=== PATIENT | female | born 1955 | race Caucasian/White ===

== ENCOUNTER 2020-08-02 11:29 | Outpatient (REF) | payer OTHER, SELFPAY ==
--- NOTE | 2020-08-02 11:35 | MM_ITS ---
EXAMINATION: MM SCREENING DIGITAL BREAST TOMOSYNTHESIS, BILATERAL CLINICAL INFORMATION: Screening. Asymptomatic. The lifetime risk of breast cancer based on the Tyrer-Cuzick Model is 6.7%. COMPARISON: Mammography: May 08, 2019 and studies dating back to April 16, 2009 TECHNIQUE: Digital breast tomosynthesis is performed in both the craniocaudal and mediolateral oblique views along with computer-aided detection (CAD). Synthesized 2D images are generated from the tomosynthesis. FINDINGS: The breasts are almost entirely fatty (ACR BI-RADS breast composition Category a). There are no significant masses, abnormal calcifications, or other abnormalities. MM/MM tomosynthesis screening BI IMPRESSION: There are no significant changes from prior study. ASSESSMENT: BI-RADS 1: Negative RECOMMENDATION: Routine annual mammography screening. This patient's information was entered into a reminder system with a target due date for their next mammogram.
== END 2020-08-02 11:30 | disposition home or self-care (01) ==
LOC: HO.MAMMO 11:29
PROVIDERS: Visit Provider Family Medicine
DX: Z12.31 Encounter for screening mammogram for malignant neoplasm of breast (principal)
CPT/HCPCS: 77063; 77067

== ENCOUNTER 2021-04-01 12:47 | Outpatient (REF) | payer OTHER, SELFPAY ==
--- NOTE | ~2021-04-01 | US_ITS ---
EXAMINATION: US VENOUS WITH DOPPLER UPPER EXTREMITY, LEFT CLINICAL INFORMATION: Left arm pain and swelling COMPARISON: None TECHNIQUE: Ultrasound of the upper extremity is performed using compression sonography and color and pulse Doppler flow with assessment of augmentation of flow. There is also imaging and Doppler assessment of the jugular and subclavian veins. Spectral analysis with color-flow imaging is performed. FINDINGS: Respiratory variation, normal compression, and augmented flow are noted throughout the upper extremity including the axillary, brachial, cubital, and radial and ulnar veins. There is normal flow in the internal jugular and subclavian veins. There is no visible deep or superficial thrombophlebitis. If the patient's symptoms progress, a followup ultrasound in 5 -7 days might be of value to exclude proximal propagation from a nonvisualized distal arm vein. US/US venous duplex UE LT IMPRESSION: No DVT demonstrated in the left upper extremity
--- NOTE | ~2021-04-01 | XR_ITS ---
EXAMINATION: XR SHOULDER, LEFT CLINICAL INFORMATION: Pain. COMPARISON: None TECHNIQUE: AP external rotation, Grashey, scapular Y, and axillary views of the left shoulder. FINDINGS: There is mild reduction in the left AC joint space. The left lateral joint space is maintained normal. There is a small calcification lateral to the greater tuberosity suggestive of calcific tendinitis. No acute fracture or dislocation seen. The soft tissues are normal. XR/XR shoulder LT min 2V IMPRESSION: Likely calcific tendinitis. Mild DJD AC joint.
== END 2021-04-01 12:48 | disposition home or self-care (01) ==
LOC: HO.US 12:47
PROVIDERS: Visit Provider Family Medicine
DX: R60.0 Localized edema (principal); M79.89 Other specified soft tissue disorders; M79.602 Pain in left arm
CPT/HCPCS: 73030; 93971

== ENCOUNTER 2021-08-12 10:34 | Outpatient (REF) | payer OTHER, SELFPAY ==
--- NOTE | ~2021-08-12 | MM_ITS ---
EXAMINATION: MM SCREENING DIGITAL BREAST TOMOSYNTHESIS, BILATERAL CLINICAL INFORMATION: Screening. Asymptomatic. The lifetime risk of breast cancer based on the Tyrer-Cuzick Model is 6%. COMPARISON: Mammography: 08/02/2020, 05/08/2019, 05/03/2018 TECHNIQUE: Digital breast tomosynthesis is performed in both the craniocaudal and mediolateral oblique views along with computer-aided detection (CAD). Synthesized 2D images are generated from the tomosynthesis. Additional views are obtained: Bilateral CC, bilateral MLO. FINDINGS: The breasts are almost entirely fatty (ACR BI-RADS breast composition Category a). Background stromal and fibroglandular markings are similar to prior studies. There is no interval mass or architectural abnormality or abnormal calcifications. No developing density. The axilla and skin contours are unremarkable. No significant changes. MM/MM tomosynthesis screening BI IMPRESSION: No mammographic evidence of malignancy. ASSESSMENT: BI-RADS 1: Negative RECOMMENDATION: Routine annual mammography screening. This patient's information was entered into a reminder system with a target due date for their next mammogram.
== END 2021-08-12 10:35 | disposition home or self-care (01) ==
LOC: HO.MAMMO 10:34
PROVIDERS: PCP Family Medicine; Visit Provider Family Medicine
DX: Z12.31 Encounter for screening mammogram for malignant neoplasm of breast (principal)
CPT/HCPCS: 77063; 77067

== ENCOUNTER 2022-05-26 09:46 | Outpatient (REF) | payer OTHER, SELFPAY ==
--- NOTE | ~2022-05-26 | XR_ITS ---
EXAMINATION: XR KNEE, LEFT CLINICAL INFORMATION: Pain COMPARISON: None TECHNIQUE: Four views of the left knee. FINDINGS: Bone alignment is normal. No fracture or dislocation. Normal-appearing joint spaces. No joint effusion. Small osteophyte at the quadriceps tendon insertion to the patella. XR/XR knee LT 4V IMPRESSION: Small osteophyte at the quadriceps tendon insertion to the patella otherwise unremarkable exam.
--- NOTE | ~2022-05-26 | US_ITS ---
EXAMINATION: US ABDOMEN LIMITED CLINICAL INFORMATION: Recurrent umbilical discharge. COMPARISON: None TECHNIQUE: Real-time imaging of the abdominal wall in the periumbilical region with and without Valsalva maneuver FINDINGS: There is a heterogeneous predominately hypoechoic area slightly to the right of midline just deep to the umbilicus. This has an echogenic nonshadowing center. This measures approximately 1 x 1 x 2 cm and is of uncertain etiology. No hernia is appreciated. US/US abdomen limited IMPRESSION: 1 x 1 x 2 cm heterogeneous area deep to the umbilicus and to the right of midline of uncertain etiology. Follow-up CT scanning recommended. No hernia.
== END 2022-05-26 09:47 | disposition home or self-care (01) ==
LOC: HO.HMGCX 09:46
PROVIDERS: PCP Family Medicine; Visit Provider Internal Medicine
DX: M25.562 Pain in left knee (principal); R19.8 Other specified symptoms and signs involving the digestive system and abdomen
CPT/HCPCS: 73564; 76705

== ENCOUNTER 2022-06-02 10:14 | Outpatient (REF) | payer OTHER, SELFPAY ==
[2022-06-02 10:48] LABS: MANUAL DIFF FLAG NO
[2022-06-02 11:30] LABS: Basophils Percent Auto 0.4 % (0-2); Eosinophils Absolute Auto 0.2 X10*3/uL (0.0-0.4); Eosinophils Percent Auto 1.6 % (0-4); Hematocrit 40.2 % (37.0-47.0); Hemoglobin 12.9 g/dl (12.0-16.0); Imm Gran Abs Auto 0.05 X10*3/uL (0.00-0.03); Imm Gran Pct Auto 0.5 % (0.0-0.4); Lymphocytes Absolute Auto 3.4 X10*3/uL (1.2-4.9); Mean Corpuscular HGB Conc 32.1 g/dl (31.0-35.0); Mean Corpuscular Hemoglobin 29.7 pg (27.0-33.0); Mean Corpuscular Volume 92.4 fL (80.0-98.0); Mean Platelet Volume 9.8 fL (9.4-12.3); Monocytes Absolute Auto 0.6 X10*3/uL (0.1-1.2); Monocytes Percent Auto 5.2 % (2-11); Neutrophils Absolute Auto 6.8 x10*3/uL (2.0-8.3); Neutrophils Percent Auto 61.3 % (45-73); Platelet Count 388 X10*3/uL (160-400); Red Blood Count 4.35 X10*6/uL (4.20-5.50); Red Cell Distribution Width 14.3 % (11.0-16.0)
[2022-06-02 11:55] LABS: Alanine Aminotransferase 8 U/L (0-31); Alkaline Phosphatase 114 U/L (39-117); Anion Gap 18 (12-20); Aspartate Amino Transferase 25 U/L (5-31); Bilirubin Total 0.3 mg/dL (0.0-1.0); Blood Urea Nitrogen 14 mg/dL (9-16); Calcium 9.6 mg/dL (8.4-10.2); Carbon Dioxide 24 mmol/L (22-29); Chloride 102 mmol/L (96-108); Estimated Glomerular Filt Rate > 60; Glucose Random 283 mg/dL (60-115); Potassium 4.5 mmol/L (3.3-5.1); Sodium 139 mmol/L (135-145); Total Protein 7.5 g/dL (6.5-8.0)
[2022-06-02 13:12] LABS: Estimated Average Glucose 169 mg/dL; Hemoglobin A1c % 7.5 %
== END 2022-06-02 10:15 | disposition home or self-care (01) ==
LOC: HO.LAB 10:14
PROVIDERS: PCP Family Medicine; Visit Provider Surgery
DX: E11.9 Type 2 diabetes mellitus without complications (principal); E66.01 Morbid (severe) obesity due to excess calories; J44.9 Chronic obstructive pulmonary disease, unspecified; B99.9 Unspecified infectious disease
CPT/HCPCS: 36415; 80053; 83036; 85025; 99202

== ENCOUNTER 2022-06-11 09:45 | Outpatient (REF) | payer OTHER, SELFPAY ==
--- NOTE | ~2022-06-11 | CT_ITS ---
EXAMINATION: CT ABDOMEN AND PELVIS WITHOUT CONTRAST CLINICAL INFORMATION: Umbilical granuloma. COMPARISON: None TECHNIQUE: Multidetector volumetric imaging was performed from the superior aspect of the liver through the pubic symphysis. Sagittal and coronal reformatted images were obtained on the technologist's workstation. This CT examination was performed using dose optimization techniques as appropriate, variously including the following: *Automated exposure control *Adjustment of mA and/or kV according to patient size (this includes techniques or standardized protocols for targeted exams where dose is matched to indication/reason for exam; i.e. extremities or head) *Use of iterative reconstruction technique DLP: 956 mGy-cm FINDINGS: LUNG BASES: The lung bases are well-expanded and clear. The heart size is normal. LIVER, GALLBLADDER, AND BILIARY TREE: The liver is normal in size, shape, and attenuation. No focal hepatic lesion or biliary ductal dilatation is present. The gallbladder is unremarkable with no evidence of radiopaque gallstones, gallbladder wall thickening, or obvious pericholecystic inflammatory changes. PANCREAS: Unremarkable. SPLEEN: Unremarkable. ADRENAL GLANDS: Unremarkable. KIDNEYS AND URETERS: The kidneys are normal in size, shape, and attenuation. No hydronephrosis, hydroureter, or calculi seen. No perinephric stranding. BLADDER: Unremarkable. GASTROINTESTINAL TRACT: There is scattered stool, diverticuli and gas seen throughout the colon without significant distention or diverticulitis. The small bowel loops are normal caliber. The appendix is not visualized. There is no inflammatory process in the abdomen. ABDOMINAL WALL: A tiny umbilical hernia containing fat is noted. No abnormal mass or calcification seen. LYMPH NODES: Small shotty bilateral inguinal lymph nodes seen. No abnormal retroperitoneal or mesenteric lymph nodes seen. VASCULAR: The abdominal is normal caliber. PELVIC VISCERA: Unremarkable. OSSEOUS STRUCTURES: There are degenerative disc changes with vacuum disc phenomenon, spondylosis/bulge complex L5/S1 disc level. CT/CT abdomen pelvis wo IV con IMPRESSION: 1. No acute intra-abdominal process seen. 2. Scattered colonic diverticulosis without diverticulitis. Mild constipation. Tiny umbilical hernia containing fat. Fleischner guidelines were followed.
== END 2022-06-11 09:46 | disposition home or self-care (01) ==
LOC: HO.CT 09:45
PROVIDERS: PCP Family Medicine; Visit Provider Surgery
DX: B99.9 Unspecified infectious disease (principal); P83.81 Umbilical granuloma; E11.9 Type 2 diabetes mellitus without complications; E66.01 Morbid (severe) obesity due to excess calories; J44.9 Chronic obstructive pulmonary disease, unspecified
CPT/HCPCS: 74176

== ENCOUNTER → 2022-06-23 09:12 | Outpatient (BNVA) | payer OTHER, SELFPAY | PROVIDERS: PCP Family Medicine; Visit Provider Surgery | DX: P83.81 Umbilical granuloma (principal); B99.9 Unspecified infectious disease; E66.01 Morbid (severe) obesity due to excess calories; K59.00 Constipation, unspecified; E11.9 Type 2 diabetes mellitus without complications; J44.9 Chronic obstructive pulmonary disease, unspecified; Z68.42 Body mass index [BMI] 45.0-49.9, adult | CPT/HCPCS: 99212 ==

== ENCOUNTER 2022-08-24 10:37 | Outpatient (REF) | payer MEDICARE, SELFPAY ==
--- NOTE | ~2022-08-24 | MM_ITS ---
EXAMINATION: MM SCREENING DIGITAL BREAST TOMOSYNTHESIS, BILATERAL CLINICAL INFORMATION: Screening. Asymptomatic. The lifetime risk of breast cancer based on the Tyrer-Cuzick Model is 6%. COMPARISON: Mammography: 08/12/2021, 08/02/2020, 05/08/2019 TECHNIQUE: Digital breast tomosynthesis is performed in both the craniocaudal and mediolateral oblique views along with computer-aided detection (CAD). Synthesized 2D images are generated from the tomosynthesis. Additional bilateral CC and additional bilateral MLO views are provided. FINDINGS: There are scattered areas of fibroglandular density (ACR BI-RADS breast composition Category b). Breast tissue composition borders on predominantly fatty. Background stromal and fibroglandular densities are stable. No developing density or architectural abnormality or abnormal calcifications. No significant changes. MM/MM tomosynthesis screening BI IMPRESSION: No mammographic evidence of malignancy. ASSESSMENT: BI-RADS 1: Negative RECOMMENDATION: Routine annual mammography screening. This patient's information was entered into a reminder system with a target due date for their next mammogram.
== END 2022-08-24 10:38 | disposition home or self-care (01) ==
LOC: HO.MAMMO 10:37
PROVIDERS: PCP Family Medicine; Visit Provider Family Medicine
DX: Z12.31 Encounter for screening mammogram for malignant neoplasm of breast (principal)
CPT/HCPCS: 77063; 77067

== ENCOUNTER 2022-12-16 10:25 | Outpatient (REF) | payer MEDICARE, SELFPAY ==
--- NOTE | ~2022-12-16 | XR_ITS ---
EXAMINATION: XR SHOULDER, LEFT CLINICAL INFORMATION: Pain x3 days worse with range of motion COMPARISON: None available. TECHNIQUE: AP external rotation, Grashey, scapular Y, and axillary views of the left shoulder. FINDINGS: No fractures or dislocations. There is calcification in the supraspinatus tendon, slightly more than was seen on 04/01/2021. Again noted are mild degenerative changes at the left AC joint. XR/XR shoulder LT min 2V IMPRESSION: 1. Calcific tendinitis left shoulder. 2. Mild degenerative changes left AC joint.
== END 2022-12-16 10:26 | disposition home or self-care (01) ==
LOC: HO.HHCX 10:25
PROVIDERS: Visit Provider Emergency Medicine
DX: M25.512 Pain in left shoulder (principal)
CPT/HCPCS: 73030

== ENCOUNTER 2023-08-17 21:41 | Emergency (ER) | payer OTHER, SELFPAY ==
[2023-08-17 21:43] VITALS: BP 170/86; PULSE 87; RESP 18; TEMP 36.8; O2SAT 95; BMI 45.7
[2023-08-17 22:09] LABS: MANUAL DIFF FLAG NO
[2023-08-17 22:17] LABS: Basophils Absolute Auto 0.1 X10*3/uL (0.0-0.2); Basophils Percent Auto 0.4 % (0-2); Eosinophils Absolute Auto 0.1 X10*3/uL (0.0-0.4); Eosinophils Percent Auto 0.6 % (0-4); Hematocrit 39.1 % (37.0-47.0); Hemoglobin 13.1 g/dl (12.0-16.0); Imm Gran Abs Auto 0.08 X10*3/uL (0.00-0.03); Imm Gran Pct Auto 0.5 % (0.0-0.4); Lymphocytes Absolute Auto 2.7 X10*3/uL (1.2-4.9); Mean Corpuscular HGB Conc 33.5 g/dl (31.0-35.0); Mean Corpuscular Hemoglobin 30.4 pg (27.0-33.0); Mean Corpuscular Volume 90.7 fL (80.0-98.0); Mean Platelet Volume 9.7 fL (9.4-12.3); Monocytes Absolute Auto 0.5 X10*3/uL (0.1-1.2); Monocytes Percent Auto 3.4 % (2-11); Neutrophils Absolute Auto 12.2 x10*3/uL (2.0-8.3); Neutrophils Percent Auto 78.1 % (45-73); Platelet Count 337 X10*3/uL (160-400); Red Blood Count 4.31 X10*6/uL (4.20-5.50); Red Cell Distribution Width 13.6 % (11.0-16.0); White Blood Count 15.6 X10*3/uL (4.8-10.8)
[2023-08-17 22:18] LABS: Appearance Urine Clear; Color Urine Yellow; Glucose Urine UA Negative (Negative); Leukocyte Esterase Urine Small (1+) (Negative); Nitrite Urine Negative (Negative); UMIC TRIGGER UACC YES; Urine Blood Moderate (2+) (Negative); Urine Ketones Negative (Negative); Urine Protein Negative (Neg-Trace)
[2023-08-17 22:23] LABS: Bacteria Urine 1+ (None Seen); Hyaline Casts Urine 0-2 /LPF (0-2); UACC Culture Trigger YES
[2023-08-17 22:25] LABS: Alanine Aminotransferase < 5 U/L (0-31); Albumin Level 3.9 g/dL (3.5-5.0); Alkaline Phosphatase 120 U/L (39-117); Anion Gap 16 (12-20); Aspartate Amino Transferase 14 U/L (5-31); Bilirubin Total 0.3 mg/dL (0.0-1.0); Blood Urea Nitrogen 19 mg/dL (9-16); Calcium 9.3 mg/dL (8.4-10.2); Carbon Dioxide 26 mmol/L (22-29); Chloride 103 mmol/L (96-108); Creatinine Clr Calc Pharmacy 60.7; Estimated Glomerular Filt Rate 50; Glucose Random 204 mg/dL (60-115); Potassium 4.3 mmol/L (3.3-5.1); Sodium 141 mmol/L (135-145); Total Protein 7.9 g/dL (6.5-8.0)
== END 2023-08-18 00:30 | disposition left against medical advice (07) ==
LOC: HO.ED 08-18 00:28
PROVIDERS: Emergency Provider Emergency Medicine; PCP Family Medicine
DX: R10.9 Unspecified abdominal pain (principal); R11.2 Nausea with vomiting, unspecified; Z79.899 Other long term (current) drug therapy
CPT/HCPCS: 36415; 80053; 81001; 85025; 87086; 87088; 87186; 99282; 99283

== ENCOUNTER 2023-08-18 | Outpatient (REF) | payer OTHER, SELFPAY | END 2023-08-18 00:01 | disposition home or self-care (01) | LOC: HO.HHCLNP | PROVIDERS: Visit Provider Internal Medicine | DX: N30.00 Acute cystitis without hematuria (principal) | CPT/HCPCS: 87086 ==

== ENCOUNTER 2023-08-27 16:07 | Outpatient (REF) | payer OTHER, SELFPAY | END 2023-08-27 16:08 | disposition home or self-care (01) | LOC: HO.MAMMO 16:07 | PROVIDERS: PCP Family Medicine; Visit Provider Family Medicine | DX: Z12.31 Encounter for screening mammogram for malignant neoplasm of breast (principal) | CPT/HCPCS: 77063; 77067 ==

== ENCOUNTER → 2023-08-27 16:15 | Outpatient (BNV) | payer OTHER, SELFPAY | PROVIDERS: PCP Family Medicine; Visit Provider Radiology Diagnostic Radiology | DX: Z12.31 Encounter for screening mammogram for malignant neoplasm of breast (principal) | CPT/HCPCS: 77063; 77067 ==

== ENCOUNTER 2023-11-04 09:10 | Outpatient (REF) | payer OTHER, SELFPAY ==
[2023-11-04 11:38] LABS: Hematocrit 40.4 % (37.0-47.0); Hemoglobin 13.1 g/dl (12.0-16.0); Mean Corpuscular HGB Conc 32.4 g/dl (31.0-35.0); Mean Corpuscular Hemoglobin 30.8 pg (27.0-33.0); Mean Corpuscular Volume 94.8 fL (80.0-98.0); Mean Platelet Volume 10.2 fL (9.4-12.3); Platelet Count 350 X10*3/uL (160-400); Red Blood Count 4.26 X10*6/uL (4.20-5.50); White Blood Count 9.3 X10*3/uL (4.8-10.8)
[2023-11-04 11:43] LABS: Estimated Average Glucose 171 mg/dL; Hemoglobin A1c % 7.6 % (<6.0)
[2023-11-04 12:10] LABS: Creatinine Urine 115.44 mg/dL; Microalbum/Creatinine Ratio Ur 9.5 ug/mg cr (<30)
[2023-11-04 12:27] LABS: Alanine Aminotransferase < 5 U/L (0-31); Albumin Level 3.8 g/dL (3.5-5.0); Alkaline Phosphatase 108 U/L (39-117); Anion Gap 13 (12-20); Aspartate Amino Transferase 16 U/L (5-31); Bilirubin Direct 0.2 mg/dL (0.0-0.5); Bilirubin Total 0.4 mg/dL (0.0-1.0); Blood Urea Nitrogen 15 mg/dL (9-16); Calcium 9.8 mg/dL (8.4-10.2); Carbon Dioxide 28 mmol/L (22-29); Chloride 104 mmol/L (96-108); Cholesterol 137 mg/dL (<200); Estimated Glomerular Filt Rate > 60; Glucose Random 113 mg/dL (60-115); HDL Cholesterol 45 mg/dL (>40); LDL Cholesterol Calculated 71 mg/dL (<100); Potassium 4.3 mmol/L (3.3-5.1); Sodium 141 mmol/L (135-145); Total Protein 7.8 g/dL (6.5-8.0); Triglycerides 106 mg/dL (<150)
[2023-11-04 12:43] LABS: Free T4 (Free Thyroxine) 0.99 ng/dL (0.71-1.85); Thyroid Stimulating Hormone 3.16 uIU/mL (0.32-4.0)
== END 2023-11-04 09:11 | disposition home or self-care (01) ==
LOC: HO.HHCL 09:10
PROVIDERS: Visit Provider Family Medicine
DX: Z00.00 Encounter for general adult medical examination without abnormal findings (principal); E11.9 Type 2 diabetes mellitus without complications; I10 Essential (primary) hypertension; E78.49 Other hyperlipidemia; F41.9 Anxiety disorder, unspecified; J44.9 Chronic obstructive pulmonary disease, unspecified; M54.42 Lumbago with sciatica, left side; G89.29 Other chronic pain; R20.2 Paresthesia of skin; M25.512 Pain in left shoulder; Z91.89 Other specified personal risk factors, not elsewhere classified; Z78.0 Asymptomatic menopausal state; Z79.4 Long term (current) use of insulin
CPT/HCPCS: 36415; 80048; 80061; 80076; 82043; 82570; 83036; 84439; 84443; 85027

== ENCOUNTER 2023-11-11 09:03 | Outpatient (REF) | payer OTHER, SELFPAY ==
--- NOTE | ~2023-11-11 | MM_ITS ---
EXAMINATION: BONE DENSITOMETRY CLINICAL INDICATION: Postmenopausal. Screening for osteoporosis. COMPARISON: This is the patient's baseline examination. TECHNIQUE: Using a VHX DXA System (software version: 13.1) manufactured by [employer], dual-energy x-ray absorptiometry was performed of the lumbar spine and left hip. The images are of good technical quality. Summary results are attached. FINDINGS: LEFT FEMUR, NECK: BMD 0.957 g/cm2, Z-score 0.2, T-score -0.6, normal. LEFT FEMUR, TOTAL: BMD 1.116 g/cm2, Z-score 1.3, T-score 0.9, normal. AP SPINE L1-L4: BMD 1.151 g/cm2, Z-score 0.2, T-score -0.2, normal. IDENTIFIED RISK FACTORS: Menopause, rheumatoid arthritis, history of fracture (adult). HISTORY OF FRACTURE: Wrist. MEDICATIONS: Vitamin D. MM/XR DEXA axial skeleton IMPRESSION: 1. DIAGNOSIS: Normal bone density based on the lowest T-score value of -0.6 in the femoral neck applying World Health Organization criteria. 2. 10-YEAR FRACTURE RISK PREDICTION, FRAX: According to the guidelines, FRAX calculation should only be performed on patients in the osteopenia bone density category. Therefore, FRAX was not performed on this patient. 3. Treatment Recommendations: NOF guidelines recommend consideration for treatment in postmenopausal women and men age 50 and older presenting with the following: -A hip or vertebral (clinical or morphometric) fracture. -T-score less than or equal to -2.5 at the femoral neck or spine after appropriate evaluation to exclude secondary causes. -Low bone mass at the hip or spine and a 10-year fracture probability by FRAX of greater than or equal to 3% for hip fracture or greater than or equal to 20% for major osteoporotic fracture based on the [place] adapted WHO algorithm. 4. Other Recommendations: All treatment decisions require clinical judgment and consideration of individual patient factors, including patient preferences, comorbidities, previous drug use, risk factors not captured in the FRAX model (e.g. frailty, falls, vitamin D deficiency, increased bone turnover, interval significant decline in bone density) and possible under or overestimation of fracture risk by FRAX. FUTURE SCAN RECOMMENDATION: People with diagnosed cases of osteoporosis or at high risk for fracture should have regular bone mineral density tests. For patients eligible for Medicare, routine testing is allowed once every 2 years. The testing frequency can be increased to one year for patients who have rapidly progressing disease, those who are receiving or discontinuing medical therapy to restore bone mass, or have additional risk factors.
== END 2023-11-11 09:04 | disposition home or self-care (01) ==
LOC: HO.MAMMO 09:03
PROVIDERS: PCP Family Medicine; Visit Provider Family Medicine
DX: Z13.820 Encounter for screening for osteoporosis (principal); Z78.0 Asymptomatic menopausal state; Z91.89 Other specified personal risk factors, not elsewhere classified
CPT/HCPCS: 77080

== ENCOUNTER → 2024-01-24 15:53 | Outpatient (BNVA) | payer OTHER, SELFPAY | PROVIDERS: PCP Family Medicine; Visit Provider Nurse Practitioner Family | DX: R19.5 Other fecal abnormalities (principal); K59.00 Constipation, unspecified; Z86.19 Personal history of other infectious and parasitic diseases | CPT/HCPCS: 99202 ==

== ENCOUNTER 2024-06-30 09:20 | Day surgery (SDC) | payer OTHER, SELFPAY ==
[2024-06-27 12:30] VITALS: BMI 43.7
--- NOTE | 2024-06-29 10:23 | P.CONAN_ITS ---
HPI - Anesthesia Eval Consult details Narrative: 68yo F for Colonoscopy Anesthesia Pre-Procedure Meds Is the patient on any of the following meds?: SGLT2 Inhib PMFSH Active Problems Active Problems: All Active Problems Constipation (Acute) COPD (chronic obstructive pulmonary disease) (Acute) DMII (diabetes mellitus, type 2) (Acute) Morbid (severe) obesity due to excess calories (Acute) Infected umbilical granuloma (Acute) Past Medical History Medical History (Updated 06/29/24 @ 09:36 by Lin Thomas RN) Constipation Hepatitis C Anxiety HTN (hypertension) COPD (chronic obstructive pulmonary disease) Diabetes Family History Family History Father Lung cancer Surgical History Surgical History No pertinent past surgical history Social History Social History Alcohol intake: current Alcohol intake frequency: holidays/special occasions only Patient Tobacco Use Status: Former Tobacco user Meds Allergies Allergy/AdvReac Type Severity Reaction Status Date / Time losartan [LOSARTAN] Allergy Severe HIVES Verified 01/24/24 16:06 latex [LATEX] Allergy Intermediate RASH Verified 01/24/24 16:06 lisinopril AdvReac Unknown coughing Verified 01/24/24 16:06 Latex Gloves Allergy Unknown Rash Uncoded 06/02/22 09:33 Home Medications ?Medication ?Instructions ?Recorded ?Confirmed ?Last Taken ?Type albuterol sulfate 90 mcg/actuation 2 puff inhalation Q6H PRN 06/02/22 06/23/22 Unknown History aerosol inhaler (ProAir HFA) aspirin 81 mg tablet,delayed 81 mg PO DAILY 06/02/22 06/23/22 Unknown History release atorvastatin 20 mg tablet (Lipitor) 20 mg PO BEDTIME 06/02/22 06/23/22 Unknown History cetirizine 10 mg tablet (Zyrtec) 10 mg PO DAILY PRN 06/02/22 06/23/22 Unknown History cholecalciferol (vitamin D3) 50 50 mcg PO DAILY 06/02/22 06/23/22 Unknown History mcg (2,000 unit) capsule fluticasone propionate 50 2 spray intranasal DAILY 06/02/22 06/23/22 Unknown History mcg/actuation nasal spray,suspension lorazepam 0.5 mg tablet (Ativan) 0.5 mg PO BID PRN 06/02/22 06/23/22 Unknown History lutein 40 mg capsule 40 mg PO DAILY 06/02/22 06/23/22 Unknown History meloxicam 15 mg tablet 15 mg PO DAILY 06/02/22 06/23/22 Unknown History metoprolol succinate 25 mg 12.5 mg PO DAILY 06/02/22 06/23/22 Unknown History tablet,extended release 24 hr (Toprol XL) montelukast 10 mg tablet 10 mg PO QPM 06/02/22 06/23/22 Unknown History (Singulair) [id number] 5 mg-zeaxanth cap PO 06/02/22 06/23/22 Unknown History 1 mg-bilberry 7.5 mg-herbal capsule ([employer] Formula) empagliflozin 25 mg tablet 25 mg PO DAILY 01/24/24 Unknown History (Jardiance) insulin degludec 200 unit/mL (3 38 unit subcut BEDTIME 01/24/24 Unknown History mL) subcutaneous pen (Tresiba FlexTouch U-200 insulin) Exam Height,Weight and Vital Signs: Height 5 ft 2 in Weight 108.409 kg Assessment and Plan Assessment Anesthesia Assessment: Chart Reviewed
[2024-06-30 10:17] VITALS: BP 155/83; PULSE 105; RESP 16; TEMP 36.6; O2SAT 97; BMI 45.2
[2024-06-30 10:18] LABS: Glucose, Whole Blood 178 mg/dL (60-115)
[2024-06-30] MEDS: Lactated Ringers 1,000 ML 100 ML IVCONT (10:28)
--- NOTE | 2024-06-30 10:39 | MHC.SHP ---
Pre-Procedural Eval Section A - 24 Hr Update-Section A only Date of Service: 06/30/24 The patient is an INPATIENT: No The patient has been examined within 24 hours of the surgical procedure. The History & Physical has been completed within 30 days and I have reviewed it.: No Section B - Complete if H&P > 30 days Chief Complaint: Positive Cologuard test Relevant Family History (Specify if Yes): No Relevant Social History: Tobacco Use (Former smoker) Present Medications: see Short Stay Collaborative assessment Medical History: Significant History (COPD, diabetes mellitus, hypertension, constipation) History of Previous Operations: No relevant previous surgery Allergies: Allergies Allergy/AdvReac Type Severity Reaction Status Date / Time losartan [LOSARTAN] Allergy Severe HIVES Verified 06/30/24 10:10 latex [LATEX] Allergy Intermediate RASH Verified 06/30/24 10:10 lisinopril AdvReac Intermediate coughing Verified 06/30/24 10:10 Latex Gloves Allergy Intermediate Rash Uncoded 06/30/24 10:10 Review of Systems Sugical H&P ROS: Negative: Constitution, Cardiovascular, Respiratory and Gastrointestinal Exam Surgical H&P Exam: Normal: Heart, Normal: Lungs, Normal: Extremities and Normal: Abdomen Plan Diagnosis/Plan: Unchanged I have reviewed the history and physical and performed a pertinent physical examination on my patient. No changes have occurred unless specified. Time Spent With Patient Time: Total time managing care of this patient today ____ minutes.
--- NOTE | 2024-06-30 11:09 | HO.ANESPROP2 ---
[facility] Active Problems Active Problems: All Active Problems Constipation (Acute) COPD (chronic obstructive pulmonary disease) (Acute) DMII (diabetes mellitus, type 2) (Acute) Morbid (severe) obesity due to excess calories (Acute) Infected umbilical granuloma (Acute) Past Medical History Medical History Constipation Hepatitis C Anxiety HTN (hypertension) COPD (chronic obstructive pulmonary disease) Diabetes Functional capacity: independent ambulation Patient : No Family History Family History Father Lung cancer Family history of problems with anesthesia: No Surgical History Surgical History History of mandibular surgery No pertinent past surgical history History of Problems with Anesthesia: No Social History Social History Are you a primary career development manager to a significant other at home: No Do you presently have visiting nurse or other home services: No Alcohol intake: current Alcohol intake frequency: does not drink Patient Tobacco Use Status: Former Tobacco user Tobacco use type: Cigarette Years Smoked: 20 Smoked in Last 30 Days: No Use of substances other than those prescribed or required for medical reasons: No Have you been hit, kicked, punched, or otherwise hurt by someone within the past year? If so, by whom?: No Are you DNR?: No Advance Directives: No Advance Directives Information Provided: Yes ( [place] per patient) Advance Directives on File: No Recently lost weight without trying: No How much weight loss: Not applicable Eating poorly because of decreased appetite: No Nutrition screen score: 0 Nutrition Risks: No Nutritional Risk Patient : No : No Poor oral hygiene: Yes (upper front tooth loose, upper tooth cracked, missing multiple upper teeth) Meds Allergies Allergy/AdvReac Type Severity Reaction Status Date / Time losartan [LOSARTAN] Allergy Severe HIVES Verified 06/30/24 10:10 latex [LATEX] Allergy Intermediate RASH Verified 06/30/24 10:10 lisinopril AdvReac Intermediate coughing Verified 06/30/24 10:10 Latex Gloves Allergy Intermediate Rash Uncoded 06/30/24 10:10 Active Medications: Current Medications Albuterol Sulfate (Albuterol Sulfate (0.083%) 2.5 Mg/3 Ml Vial.Neb) 2.5 mg INHALE ONCE PRN PRN Reason: Shortness of Breath/Wheezing Lactated Ringer's (Lr) 1,000 mls @ 100 mls/hr IVCONT .Q10H NAEEM Last Admin: 06/30/24 10:28 Dose: 100 mls/hr Home Medications ?Medication ?Instructions ?Recorded ?Confirmed ?Last Taken ?Type albuterol sulfate 90 mcg/actuation 2 puff inhalation Q6H PRN asthma 06/02/22 06/30/24 Unknown History aerosol inhaler (ProAir HFA) aspirin 81 mg tablet,delayed 81 mg PO DAILY 06/02/22 06/30/24 06/27/24 History release atorvastatin 20 mg tablet (Lipitor) 20 mg PO BEDTIME 06/02/22 06/30/24 Unknown History cetirizine 10 mg tablet (Zyrtec) 10 mg PO DAILY PRN allergies 06/02/22 06/30/24 06/30/24 History cholecalciferol (vitamin D3) 50 50 mcg PO DAILY 06/02/22 06/30/24 Unknown History mcg (2,000 unit) capsule fluticasone propionate 50 2 spray intranasal DAILY 06/02/22 06/30/24 Unknown History mcg/actuation nasal spray,suspension (Flonase Allergy Relief) lorazepam 0.5 mg tablet (Ativan) 0.5 mg PO BID PRN Anxiety 06/02/22 06/30/24 Unknown History lutein 40 mg capsule 40 mg PO DAILY 06/02/22 06/30/24 Unknown History meloxicam 15 mg tablet 15 mg PO DAILY 06/02/22 06/30/24 06/27/24 History metoprolol succinate 25 mg 12.5 mg PO DAILY 06/02/22 06/30/24 06/27/24 History tablet,extended release 24 hr (Toprol XL) montelukast 10 mg tablet 10 mg PO QPM 06/02/22 06/30/24 Unknown History (Singulair) [id number] 5 mg-zeaxanth 1 cap PO DAILY 06/02/22 06/30/24 Unknown History 1 mg-bilberry 7.5 mg-herbal capsule ([employer] Formula) empagliflozin 25 mg tablet 25 mg PO DAILY 01/24/24 06/30/24 06/27/24 History (Jardiance) insulin degludec 200 unit/mL (3 40 unit subcut BEDTIME 01/24/24 06/30/24 06/29/24 22:00 History mL) subcutaneous pen (Tresiba 20 units FlexTouch U-200 insulin) Exam Height,Weight and Vital Signs: Height 5 ft 2 in Weight 112.037 kg Last Vital Signs Temp 97.8 F 06/30/24 10:17 Pulse 105 H 06/30/24 10:17 Resp 16 06/30/24 10:17 BP 155/83 H 06/30/24 10:17 Pulse Ox 97 06/30/24 10:17 O2 Del Method Room Air 06/30/24 10:17 Pertinent Lab Results Pertinent Lab Results: Laboratory Tests 06/30/24 10:14 POC Glucose 178 H Airway Mallampati Class: III TM Dist: >3cm Neck ROM: Full Heart: RRR Lungs: CTA Assessment and Plan Assessment Anesthesia Assessment: Anesthesia Plan Discussed, Smoking Cess. Discussed and Chart Reviewed Final Anesthetic Review Family History of Problems with Anesthesia: No History of Problems with Anesthesia: No NPO: Yes ASA Class: III Final Preanesthetic Review: Meds/Allgs Chart Reviewed, Consent Obtained/Reviewed and Anes Risks/Benef Reviewed Patient Risk: Intermediate Procedure Risk: Low Anesthetic Plan Anesthetic Plan: MAC: Disposition: Standard PACU
--- NOTE | 2024-06-30 11:50 | PC.NURSE ---
Patient stopped Metoprolol three days ago (last dose 05/28). ST on monitor. Thor ESCOBAR at bedside and made aware.
--- NOTE | 2024-06-30 12:31 | HO.OPN-COLON ---
Colonoscopy Operative Note Operative Note Date of Service: 06/30/24 Narrative: COLONOSCOPY TILL CECUM Pre-op diagnosis: Positive Cologuard test. Post-op diagnosis:? AVM right colon, Diverticulosis Endoscopist:? Emilie Perez MD Anesthesia:?MAC Consent: Indications for the procedure and potential complications of bleeding, perforation, reaction to medications and missed diagnosis were discussed with the patient and informed consent was obtained. Instrument: Olympus PCF H 190 L variable stiffness pediatric colonoscope Monitoring: Vital signs and clinical assessment, intermittent blood pressure monitoring, continuous EKG monitoring, Pulse oximetry and Carbon Dioxide monitoring were done throughout the procedure. Please see anesthesia flowsheet. Colon withdrawl time was 18 minutes. Procedure: The patient was placed in the left lateral decubitis position and pre-procedure medications were administered. After a digital rectal examination of the ano-rectum, the video colonoscope was inserted into the rectum and advanced through the colon to the cecum. The colonoscope was slowly withdrawn in a retrograde panoramic fashion and the colon mucosa was carefully examined including a retroflexed view of the rectum. Findings and interventions are described below. Procedure Difficulty: without difficulty Findings: Terminal Ileum: Not evaluated Cecum: Normal Ascending Colon: 1.5 cms non bleeding AVM in the proximal ascending colon Transverse Colon: Normal Descending Colon: Moderate diverticulosis Sigmoid Colon: Moderate diverticulosis Rectum: Normal Ano-rectum: Hypertrophied anal papillae Colon preparation: Good after copious irrigation and fair in the right colon with adherent stool that could not be removed with flushing - No large lesions seen and flat polyps could be missed [place] Bowel Preparation Scale Right colon; 1 Transverse colon: 2 Left colon; 2 (0 = Unprepared colon segment with mucosa not seen due to solid stool that cannot be cleared. 1 = Portion of mucosa of the colon segment seen, but other areas of the colon segment not well seen due to staining, residual stool and/or opaque liquid. 2 = Minor amount of residual staining, small fragments of stool and/or opaque liquid, but mucosa of colon segment seen well. 3 = Entire mucosa of colon segment seen well with no residual staining, small fragments of stool or opaque liquid) Impression and Post Procedure Diagnosis: Colonoscopy Findings: No polyps were detected Moderate diverticulosis seen in the left colon Colon preparation: Good after copious irrigation and fair in the right colon with adherent stool that could not be removed with flushing - No large lesions seen and flat polyps could be missed Plan: Pt has a FU appointment on 07/14/24 with Sheila Burrell NP Repeat Colonoscopy in 1-2 years due to fair prep in the right colon (Dulcolax 10 mg daily x 5 days prior to next colonoscopy appointment) Above findings were reviewed with the patient and relevant handouts were given and the discharge area.
[2024-06-30 12:35] VITALS: BP 114/64; PULSE 108; RESP 16; TEMP 36.2; O2SAT 96
[2024-06-30 12:50] VITALS: BP 118/95; PULSE 98; RESP 16; O2SAT 96
--- NOTE | 2024-06-30 12:54 | HO.POSTANES ---
Post Anesthesia Evaluation Post Anesthesia Evaluation Date of Service: 06/30/24 Vital Signs: Vital Signs Temp Pulse Resp BP Pulse Ox O2 Del Method 06/30/24 12:50 98 16 118/95 H 96 Room Air 06/30/24 12:35 97.2 F 108 H 16 114/64 96 Room Air 06/30/24 10:17 97.8 F 105 H 16 155/83 H 97 Room Air Anesthesia: Monitored Mental Status: Awake Pain Control: Satisfactory Nausea/Vomiting: None Hydration: Adequate Anesthesia-Related Issues: No Anes. Related Issues
== END 2024-06-30 13:22 | disposition home or self-care (01) ==
PROVIDERS: PCP Family Medicine; Visit Provider Internal Medicine Gastroenterology
PROC: 0DJD8ZZ Inspection of Lower Intestinal Tract, Via Natural or Artificial Opening Endoscopic (ICD-10-PCS; CPT 45378; principal; 2024-06-30 11:10)
DX: Z12.11 Encounter for screening for malignant neoplasm of colon (principal); K55.20 Angiodysplasia of colon without hemorrhage; K57.30 Diverticulosis of large intestine without perforation or abscess without bleeding; K62.89 Other specified diseases of anus and rectum; E11.9 Type 2 diabetes mellitus without complications; I10 Essential (primary) hypertension; J44.9 Chronic obstructive pulmonary disease, unspecified; B19.20 Unspecified viral hepatitis C without hepatic coma; Z87.891 Personal history of nicotine dependence
CPT/HCPCS: G0121; 82947; J2003; J2704

== ENCOUNTER → 2024-06-30 09:20 | Outpatient (BNV) | payer OTHER, SELFPAY | PROVIDERS: PCP Family Medicine; Visit Provider Internal Medicine Gastroenterology | DX: Z12.11 Encounter for screening for malignant neoplasm of colon (principal); R19.5 Other fecal abnormalities; Q27.33 Arteriovenous malformation of digestive system vessel; K57.90 Diverticulosis of intestine, part unspecified, without perforation or abscess without bleeding | CPT/HCPCS: G0121 ==

== ENCOUNTER → 2024-07-14 14:17 | Outpatient (BNVA) | payer MEDICARE, SELFPAY | PROVIDERS: PCP Family Medicine; Visit Provider Nurse Practitioner Family | DX: K57.90 Diverticulosis of intestine, part unspecified, without perforation or abscess without bleeding (principal); R19.5 Other fecal abnormalities; Z98.890 Other specified postprocedural states | CPT/HCPCS: 99212 ==

== ENCOUNTER 2024-09-29 08:57 | Outpatient (REF) | payer MEDICARE, SELFPAY | END 2024-09-29 08:58 | disposition home or self-care (01) | LOC: HO.MAMMO 08:57 | PROVIDERS: PCP Family Medicine; Visit Provider Family Medicine | DX: Z12.31 Encounter for screening mammogram for malignant neoplasm of breast (principal) | CPT/HCPCS: 77063; 77067 ==

== ENCOUNTER → 2024-09-29 09:15 | Outpatient (BNV) | payer MEDICARE, SELFPAY | PROVIDERS: PCP Family Medicine; Visit Provider Internal Medicine | DX: Z12.31 Encounter for screening mammogram for malignant neoplasm of breast (principal) | CPT/HCPCS: 77063; 77067 ==

== ENCOUNTER 2025-01-11 10:22 | Outpatient (REF) | payer MEDICARE, SELFPAY ==
--- OUTSIDE RECORDS SUMMARY | 2025-01-11 11:04 | XMS_ITS | Encounter Summary ---
Author Organization [employer] Address [address] [facility] 7t [place] [address] Care Team Providers Care Nurses Educator Name Role Phone Saundra Tee DO Primary Care Provider [phone] Shanna Kapoor PharmD Unavailable [phone] Reason for Visit * Reason Comments Med Refill Encounter Details Date Type Department Care Team ([facility] st Contact Info) Description 04/07/2023 Refill [facility] [address] [place] [address] Saundra Tee DO [address] [place] [address] Social History Tobacco Use Types Packs/Day Years Used Date Smoking Tobacco: Never Passive Smoke Exposure: Never Smokeless Tobacco: Never Alcohol Use Standard Drinks/Week Comments Never 0 (1 standard drink = 0.6 oz pur e alcohol) Depression Answer Date Recorded Patient Health Questionnaire-9 Score 0 11/18/2022 Housing Stability Answer Date Recorded What is your housing situation today? I have jose alejandro mulligan 04/11/[address] you li ve. Do you have problems with any of the following? None of the above 04/11/2023 Food Insecurity Answer Date Recorded Within the past 12 months, y ou worried that your food would run out before you got money to buy more: Never True 04/11/2023 Within the past 12 months,th e food you bought just didn't last and you didn't have enough money to get more: Never True 02/2023 Utilities Answer Date Recorded In the past 12 months, has t he electric, gas, oil or water company threatened to shut off services in your home? No 04/11/2023 Depression Answer Date Recorded Patient Health Questionnaire-2 Score 0 11/18/2022 Comments Unknown Sex and Gender Information Value Date Recorded Sex Assigned at Female 05/04/2022 10:18 AM EDT Legal Sex Female 10:18 AM EDT Gender Identity Choose not to disclose 2 10:18 AM EDT Sexual Orientation Straight 05/04/2022 10 :18 AM EDT documented as of this encounter Plan of Treatment Upcoming Encounters Date Type Department Care Team (Late st Contact Info) Description 04/10/2025 9:00 AM EDT Medication Management [facility] [address] [place], [place] [phone] Shanna Kapoor PharmD [address] [place], [place] [phone] documented as of this encounter Goals Goal Patient Goal Type Associated Problems Recent Progress Patient-Stated? Author Hemoglobin A1c < 7 Result Component 6.4( 12:28 PM EDT) No Shanna Kapoor PharmD Record your blood sugar as directed Result Component No Shanna Kapoor PharmD Note: Use CGM, ensuring sensor is scanned at least once every 8 hours to capture 24H data. Check BG manually, as directed. documented as of this encounter Visit Diagnoses Not on filedocumented in this encounter Additional Health Concerns Assessment Noted Time PHQ-9 Depression Total Score: 0 11/19/19 23 9:36 AM EDT documented as of this encounter Care Teams Nurses Educator Relationship Specialty Start Date End Date Saundra Tee DO [address] [place] [address] PCP - General Family Medicine 03/15/15 Shanna Kapoor PharmD [address] [place], [place] [phone] Pharmacist Internal Medicine 01/04/23 documented as of this encounter
[2025-01-11 12:32] LABS: Microalbum/Creatinine Ratio Ur 3.6 ug/mg cr (<30)
[2025-01-11 12:57] LABS: Alanine Aminotransferase < 6 U/L (0-31); Albumin Level 4.2 g/dL (3.5-5.0); Alkaline Phosphatase 107 U/L (39-117); Anion Gap 12 (12-20); Aspartate Amino Transferase 25 U/L (5-31); Blood Urea Nitrogen 16 mg/dL (9-16); Calcium 9.2 mg/dL (8.4-10.2); Carbon Dioxide 30 mmol/L (22-29); Chloride 104 mmol/L (96-108); Cholesterol 154 mg/dL (<200); Estimated Glomerular Filt Rate > 60; HDL Cholesterol 47 mg/dL (>40); Potassium 4.2 mmol/L (3.3-5.1); Sodium 142 mmol/L (135-145); Total Protein 7.6 g/dL (6.5-8.0); Triglycerides 159 mg/dL (<150)
[2025-01-13 15:44] LABS: HCV Log PCR <1.18 NOT DETECTED Log IU/mL (NOT DETECTED); HepC Viral Load <15 NOT DETECTED IU/mL (NOT DETECTED)
== END 2025-01-11 10:23 | disposition home or self-care (01) ==
LOC: HO.HHCL 10:22
PROVIDERS: PCP Family Medicine; Visit Provider Family Medicine
DX: E11.9 Type 2 diabetes mellitus without complications (principal); Z79.4 Long term (current) use of insulin; I10 Essential (primary) hypertension; E78.49 Other hyperlipidemia; Z86.19 Personal history of other infectious and parasitic diseases
CPT/HCPCS: 36415; 80048; 80061; 80076; 82043; 82570; 87522

== ENCOUNTER 2025-04-16 16:02 | Outpatient (REF) | payer MEDICARE, SELFPAY ==
--- OUTSIDE RECORDS SUMMARY | 2025-04-16 13:40 | XMS_ITS | Encounter Summary ---
Author Organization [employer] Address [address] [facility] 7[address] [place] [address] Care Team Providers Care Caption Writer Name Role Phone KaushikSaundra dunn Primary Care Provider + [phone] Reason for Visit * Reason Comments UTI Encounter Details Date Type Department Care Team ([facility] st Contact Info) Description 04/16/2025 1:40 PM EDT Office Visit [facility] [place] [address] [place] [address] Dysuria (Primary Dx) Social History Tobacco Use Types Packs/Day Years Used Date Smoking Tobacco: Former Cigarettes 0.3 20.8 S tarted: 2004 Passive Smoke Exposure: Never Smokeless Tobacco: Never Tobacco Cessation:Counseling Given: Not Answered Alcohol Use Standard Drinks/Week Comments Never 0 (1 standard drink = 0.6 oz pur e alcohol) Depression Answer Date Recorded Patient Health Questionnaire-9 Score 0 03/07/2024 Patient Health Questionnaire-9 Score 0 03/07/2024 Last PHQ-9: Questionnaire Data Not on file 0 03/07/2024 Housing Stability Answer Date Recorded What is your housing situation today? I have jose alejandro mulligan 10/16/[address] you li ve. Do you have problems with any of the following? None of the above 10/16/2024 Food Insecurity Answer Date Recorded Within the past 12 months, y ou worried that your food would run out before you got money to buy more: Never True 10/16/2024 Within the past 12 months,th e food you bought just didn't last and you didn't have enough money to get more: Never True Transportation Answer Date Recorded In the past 12 months, has l ack of transportation kept you from medical appts, meetings, work or from getting things needed for daily living? No 10/16/2024 Utilities Answer Date Recorded In the past 12 months, has t he electric, gas, oil or water company threatened to shut off services in your home? No 10/16/2024 Depression Answer Date Recorded Patient Health Questionnaire-2 Score 0 03/07/2024 Internet Access Answer Date Recorded Internet Access Q1 Yes 10/16/2024 Internet Access Q2 Not on file 10/16/2024 Comments Unknown Sex and Gender Information Value Date Recorded Sex Assigned at Female 05/04/2022 10:18 AM EDT Legal Sex Female 10:18 AM EDT Gender Identity Choose not to disclose 10:18 AM EDT Sexual Orientation Straight 05/04/2022 10 :18 AM EDT documented as of this encounter Last Filed Vital Signs Vital Sign Reading Time Taken Comments Blood Pressure 133/75 04/16/2025 2:04 PM EDT Pulse 73 04/16/2025 1:36 PM EDT Temperature 36.7 C (98 F) 04/16/2025 1:36 PM EDT Respiratory Rate 16 04/16/2025 1:36 PM EDT Oxygen Saturation 95% 04/16/2025 1:36 PM EDT Inhaled Oxygen Concentration - - Weight 104 kg (230 lb 3.2 oz) 04/16/2025 1:36 PM EDT Height 157.5 cm (5' 2 ) 04/16/2025 1:36 PM EDT Body Mass Index 42.1 04/16/2025 1:36 PM EDT documented in this encounter Plan of Treatment Scheduled Orders Name Type Priority Associated Diagnoses Orde r Schedule Bacterial Vaginosis Microbiology Routine Dysuria Ordered: 04/16/2025 Culture, Urine, Routine Microbiology Routine Dysuria Ordered: 04/16/2025 documented as of this encounter Goals Goal Patient Goal Type Associated Problems Recent Progress Patient-Stated? Author Hemoglobin A1c < 7 Result Component 6.3( 9:24 AM EDT) No Puia, Shanna, PharmD Record your blood sugar as directed Result Component No Puia, Shanna, PharmD Note: Use CGM, ensuring sensor is scanned at least once every 8 hours to capture 24H data. Check BG manually, as directed. documented as of this encounter Procedures Procedure Name Priority Date/Time Associated Diagnosis Comments POCT URINALYSIS DIPSTICK Routine 04/16/2025 2:02 PM EDT Dysuria documented in this encounter Results * POCT urinalysis dipstick manually resulted (CPT 34343) (04/16/2025 2:02 PM EDT) Color, UA Yellow Clarity, UA Clear Glucose, UA Trace Comment:500 mg/dl Bilirubin, UA Negative Ketones, UA Negative Spec Grav, UA 1.015 Blood, UA Negative Negative, None Detected pH, UA 5.5 Protein, UA Negative Urobilinogen, UA 0.2 Leukocytes, UA Negative Negative, Rare, Trace Nitrite, UA Negative Negative, None Detected Urine (Urine, Random) 04/16/2025 2:02 PM EDT Iveth Tate MACHINE SET UP OPERATOR POINT OF CARE TEST ENTER/EDIT O RDERABLES Final Result documented in this encounter Visit Diagnoses Diagnosis Dysuria- Primary documented in this encounter Additional Health Concerns Assessment Noted Time PHQ-9 Depression Total Score: 0 03/07/20 24 9:10 AM EDT documented as of this encounter Care Teams Caption Writer Relationship Specialty Start Date End Date Saundra Tee DO [address] [place] [id number] PCP - General Family Medicine 03/15/15 documented as of this encounter
--- OUTSIDE RECORDS SUMMARY | 2025-04-16 16:04 | XMS_ITS | Encounter Summary ---
Author Organization [employer] Address [address] [facility] 7t [place] [address] Care Team Providers Care Business Project Analyst Name Role Phone Saundra Tee DO Primary Care Provider [phone] Shanna Kapoor PharmD Unavailable [phone] Reason for Visit * Reason Comments Med Refill Encounter Details Date Type Department Care Team ([facility] st Contact Info) Description 04/07/2023 Refill [facility] [address] [place] [address] Saundra Tee DO [address] [place] [address] Social History Tobacco Use Types Packs/Day Years [...] as of this encounter Plan of Treatment Not on file documented as of this encounter Goals Goal Patient Goal Type Associated Problems Recent Progress Patient-Stated? Author Hemoglobin A1c < 7 Result Component 6.3( 5 9:24 AM EDT) No Shanna Kapoor PharmD Record your [...] documented as of this encounter Care Teams Business Project Analyst Relationship Specialty Start Date End Date Saundra Tee DO [address] [place] [address] PCP - General Family Medicine 03/15/15 Shanna Kapoor PharmD [address] [place] [address] Pharmacist Internal Medicine 01/04/23 04/09/25 documented as of this encounter
--- OUTSIDE RECORDS SUMMARY | 2025-04-16 16:05 | XMS_ITS | Encounter Summary ---
Author Organization [employer] Address [address] [facility] [address]t [place] [address] Care Team Providers Care Service Order Dispatcher Chief Name Role Phone Saundra Tee DO Primary Care Provider [phone] Shanna Kapoor PharmD Unavailable [phone] Reason for Visit * Reason Onset Date Comments Nurse Triage 08/30/2023 Encounter Details Date Type Department Care Team (Late st Contact Info) Description 08/30/2023 Telephone [facility] [address] [place] [address] Saundra Tee DO [address] [place] [address] Nurse Triage Social History Tobacco Use Types Packs/Day Years Used Date Smoking Tobacco: Never Passive Smoke Exposure: Never Smokeless Tobacco: Never Alcohol Use Standard Drinks/Week Comments Never 0 (1 standard drink = 0.6 oz pur e alcohol) Depression Answer Date Recorded Patient Health Questionnaire-9 Score 0 11/18/2022 Housing Stability Answer Date Recorded What is your housing situation today? I have jose alejandro mulligan 04/19/[address] you li ve. Do you have problems with any of the following? None of the above 04/19/2023 Food Insecurity Answer Date Recorded Within the past 12 months, y ou worried that your food would run out before you got money to buy more: Never True 04/19/2023 Within the past 12 months,th e food you bought just didn't last and you didn't have enough money to get more: Never True Transportation Answer Date Recorded In the past 12 months, has l ack of transportation kept you from medical appts, meetings, work or from getting things needed for daily living? No 07/07/2023 Utilities Answer Date Recorded In the past 12 months, has t he electric, gas, oil or water company threatened to shut off services in your home? No 04/19/2023 Depression Answer Date Recorded Patient Health Questionnaire-2 Score 0 11/18/2022 Comments Unknown Sex and Gender Information Value Date Recorded Sex Assigned at Female 05/04/2022 10:18 AM EDT Legal Sex Female 10:18 AM EDT Gender Identity Choose not to disclose 10:18 AM EDT Sexual Orientation Straight 05/04/2022 10 :18 AM EDT documented as of this encounter Miscellaneous Notes * Telephone Encounter - Esther Reyes RN - 08/30/2023 4:16 PM EST Triage call Pt was seen in [facility] 08/18/23 and dx of UTI was given. Pt was prescribed antibiotic septra for 5 days and Pt reports finished Wednesday08/23/23. Pt is calling with more urinary pain, burning with urination. Pt did pass kidney stone on 08/17/23 as well with hematuria present at the time but, Pt is not reporting pain other than burning with urination. Pt is encouraged to drink adequate liquids and come to [facility] for follow up urine specimen to be obtained. Hours 830am - 800pm given today, , wed. Pt will come either today or tomorrow. 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 Insurance is verified as active. Protocol Used: Urination Pain - Female (Adult) Protocol-Based Disposition: See in Office or Video Visit Today Video visit offer not recorded Positive Triage Question: * All other females with painful urination, or patient wants to be seen * All higher-acuity triage questions were negative Care Advice Discussed: * Reassurance and Education - Possible Urine Infection * Drink Extra Fluids * Drink Extra Fluids - Extra Notes and Warnings * Cranberry Juice * Cranberry Juice - Extra Notes and Warnings * Reasons To Call Back - Fever or back pain occurs - You become worse * Telephone Encounter - Ace Guerra - 08/30/2023 3:16 PM EST Symptom: Urination Pain Outcome: Schedule an urgent appointment (within 1 hour) or talk to a nurse or provider soon Reason: Severe pain now Please contact pt @ [phone] documented in this encounter Plan of Treatment Not on file documented as of this encounter Goals Goal Patient Goal Type Associated Problems Recent Progress Patient-Stated? Author Hemoglobin A1c < 7 Result Component 6.3( 9:24 AM EDT) No Shanna Kapoor, PharmRadhika Record your blood sugar as directed Result Component No Shanna Kapoor PharmD Note: Use CGM, ensuring sensor is scanned at least once every 8 hours to capture 24H data. Check BG manually, as directed. documented as of this encounter Visit Diagnoses Not on filedocumented in this encounter Additional Health Concerns Assessment Noted Time PHQ-9 Depression Total Score: 0 11/19/19 9:36 AM EDT documented as of this encounter Care Teams Service Order Dispatcher Chief Relationship Specialty Start Date End Date Saundra Tee DO [address] [place] [address] PCP - General Family Medicine 03/15/15 Shanna Kapoor PharmD [address] [place] [address] Pharmacist Internal Medicine 01/04/23 04/09/25 documented as of this encounter
--- OUTSIDE RECORDS SUMMARY | 2025-04-16 16:05 | XMS_ITS | Encounter Summary ---
Author Organization [employer] Address [address] [facility] 7t [place] [address] Care Team Providers Care Consumer Services Advisor Name Role Phone Saundra Tee DO Primary Care Provider [phone] Shanna Kapoor PharmD Unavailable [phone] Reason for Visit * Reason Comments Med Refill Encounter Details Date Type Department Care Team ([facility] st Contact Info) Description 06/14/2023 Refill [facility] [address] [place] [address] Saundra Tee DO [address] [place] [address] Social History Tobacco Use Types Packs/Day Years [...] enough money to get more: Never True Utilities Answer Date Recorded In the past [...] documented as of this encounter Care Teams Consumer Services Advisor Relationship Specialty Start Date End Date Saundra Tee DO [address] [place] [address] PCP - General Family Medicine 03/15/15 Shanna Kapoor PharmD [address] [place] [address] Pharmacist Internal Medicine 01/04/23 04/09/25 documented as of this encounter
--- OUTSIDE RECORDS SUMMARY | 2025-04-16 16:05 | XMS_ITS | Encounter Summary ---
Author Organization [employer] Address [address] [facility] [address]t [place] [address] Care Team Providers Care Calcine Furnace Tender Name Role Phone Saundra Tee DO Primary Care Provider [phone] Shanna Kapoor PharmD Unavailable [phone] Reason for Visit * Reason Comments Med Refill Encounter Details Date Type Department Care Team (Late st Contact Info) Description 02/02/2023 Refill [facility] [address] [place] [address] Saundra Tee DO [address] [place] [address] Social History Tobacco Use Types Packs/Day Years Used Date Smoking Tobacco: Never Passive Smoke Exposure: Never Smokeless Tobacco: Never Alcohol Use Standard Drinks/Week Comments Never 0 (1 standard drink = 0.6 oz pur e alcohol) Depression Answer Date Recorded Patient Health Questionnaire-9 Score 0 11/18/2022 Depression Answer Date Recorded Patient Health Questionnaire-2 Score 0 11/18/2022 Comments Unknown Sex and Gender Information Value Date Recorded Sex Assigned at Female 05/04/2022 10:18 AM EDT Legal Sex Female 10:18 AM EDT Gender Identity Choose not to disclose 10:18 AM EDT Sexual Orientation Straight 05/04/2022 10 :18 AM EDT COVID-19 Exposure Response Date Recorded In the last 10 days, have yo u been in contact with someone who was confirmed or suspected to have Coronavirus/COVID-19? Unable to assess 01/04/2023 9:03 AM EDT documented as of this encounter [...] documented as of this encounter Care Teams Calcine Furnace Tender Relationship Specialty Start Date End Date Saundra Tee DO [address] [place] [address] PCP - General Family Medicine 03/15/15 Shanna Kapoor PharmD [address] [place] [address] Pharmacist Internal Medicine 01/04/23 04/09/25 documented as of this encounter
--- OUTSIDE RECORDS SUMMARY | 2025-04-16 16:05 | XMS_ITS | Encounter Summary ---
Author Organization [employer] Address [address] [place] [address] [address] [place] [address] Care Team Providers Care Filling Station Laborer Name Role Phone Saundra Tee DO Primary Care Provider [phone] Shanna Kapoor PharmD Unavailable [phone] Encounter Details Date Type Department Care Team (Latest Contact Info) Description 07/26/2018 [facility] Dental, Provider, DDS Social History Tobacco Use Types Packs/Day Years Used Date Smoking Tobacco: Never Assessed Comments Unknown Sex and Gender Information Value Date Recorded Sex Assigned at Female 05/04/2022 10:18 AM EDT Legal Sex Female 10:18 AM EDT Gender Identity Choose not to disclose 10:18 AM EDT Sexual Orientation Straight 05/04/2022 10 :18 AM EDT documented as of this encounter Plan of Treatment Not on file documented as of this encounter Visit Diagnoses Not on filedocumented in this encounter Care Teams Filling Station Laborer Relationship Specialty Start Date End Date Saundra Tee DO [address] [place] [address] PCP - General Family Medicine 03/15/15 FreidaiaShanna, PharmD [address] [place] [address] Pharmacist Internal Medicine 01/04/23 04/09/25 documented as of this encounter
--- OUTSIDE RECORDS SUMMARY | 2025-04-16 16:05 | XMS_ITS | Encounter Summary ---
Author Organization [employer] Address [address] [facility] [address]t [place] [address] Care Team Providers Care Activated Sludge Operator Name Role Phone MickiSaundra lorenzana Primary Care Provider + [phone] Encounter Details Date Type Department Care Team (Latest Contact Info) Description 04/16/2025 Travel Social History Tobacco Use Types Packs/Day Years [...] sugar as directed Result Component No Shanna Kapoor, PharmD Note: Use CGM, ensuring sensor is scanned at least once every 8 hours to capture 24H data. Check BG manually, as directed. documented as of this encounter Visit Diagnoses Not on filedocumented in this encounter Additional Health Concerns Assessment Noted Time PHQ-9 Depression Total Score: 0 03/07/20 24 9:10 AM EDT documented as of this encounter Care Teams Activated Sludge Operator Relationship Specialty Start Date End Date Saundra Tee DO [address] [place] [address] PCP - General Family Medicine 03/15/15 documented as of this encounter
--- OUTSIDE RECORDS SUMMARY | 2025-04-16 16:05 | XMS_ITS | Encounter Summary ---
Author Organization [employer] Address [address] [facility] [address] [place] [address] Care Team Providers Care Aircraft Engine Installer Name Role Phone Saundra Tee DO Primary Care Provider Shanna Kapoor PharmD Unavailable [phone] Reason for Visit * Reason Onset Date Comments Nurse Triage 12/28/2022 Encounter Details Date Type Department Care Team (Late st Contact Info) Description 12/28/2022 Telephone [facility] MEDICINE [address] [place] [address] Saundra Tee DO [address] [place] [address] Nurse Triage Social History Tobacco Use Types [...] was confirmed or suspected to have Coronavirus/COVID-19? No / Unsure 12/16/2022 8:55 AM EDT documented as of this encounter Miscellaneous Notes * Telephone Encounter - Gloria Pineda RN - 12/28/2022 10:02 AM EDT Pt reports high blood sugars >500 Since tested positive for covid on 12/24. taking Prednisone andPaxlovid as prescribed. over the weekend, pt had consistent high blood sugars that did not register. pt states still high yesterday and adjusted her dose of Insulin to help bring down. pt states took an extra 30 units of Lantus Solostar yesterday. pt states feels weak, urinating frequently, andfatigued. pt states fasting sugar 384 today and will repeat in a couple of hours after her morning dose of Lantus. advised needs a TC appt with a provider to go over her blood sugars and give recommendations. pt stopped the Prednisone over the weekend due to the high blood sugars but will complete the Paxlovid. pt stopped the Prednisone after her dose on Wednesday. given TC appt today with Dr. Phoenix to discuss sugars and plan for medications. pt understands and agrees with plan. insurance verified. Protocol Used: Diabetes - High Blood Sugar (Adult) Protocol-Based Disposition: See in Office or Video Visit Today Positive Triage Question: * Symptoms of high blood sugar (e.g., frequent urination, weak, weight loss) and not able to test blood glucose * All higher-acuity triage questions were negative Care Advice Discussed: * High Blood Sugar (Hyperglycemia) * Treatment - Liquids * Continue Insulin * Measure and Record Your Blood Glucose * Reasons To Call Back - Blood glucose over 300 mg/dL (16.7 mmol/L), two or more times in a row. - Vomiting lasting over 4 hours or unable to drink any fluids - Rapid breathing occurs - You have more questions - You become worse * Telephone Encounter - Ace Guerra - 12/28/2022 9:43 AM EDT Tc from returning phone call. Please contact pt at [phone] * Telephone Encounter - Lo Cortes - 12/28/2022 8:46 AM EDT Symptom: High Blood Sugar - Caller Reports Outcome: Talk to a nurse or provider within 15 minutes Reason: Known blood sugar above 300 The caller accepted this outcome documented in this encounter Plan of Treatment Not on file documented as of this encounter Visit Diagnoses Not on filedocumented in this encounter Additional Health Concerns Assessment Noted Time PHQ-9 Depression Total Score: 0 11/19/19 9:36 AM EDT documented as of this encounter Care Teams Aircraft Engine Installer Relationship Specialty Start Date End Date Saundra Tee DO [address] [place] [address] PCP - General Family Medicine 03/15/15 Shanna Kapoor PharmD [address] [place] [address] Pharmacist Internal Medicine 01/04/23 04/09/25 documented as of this encounter
--- OUTSIDE RECORDS SUMMARY | 2025-04-16 16:05 | XMS_ITS | Encounter Summary ---
Author Organization [employer] Address [address] [facility] [address] [place] [address] Care Team Providers Care Tool Grinder Set Up Operator Gear Name Role Phone Saundra Tee DO Primary Care Provider [phone] Shanna Kapoor PharmD Unavailable [phone] Encounter Details Date Type Department Care Team (Late st Contact Info) Description 07/28/2023 Abstract [facility] MEDICINE [address] [place] [address] Saundra Tee DO [address] [place] [address] Social History Tobacco Use Types Packs/Day Years [...] Component 6.3( 9:24 AM EDT) No Shanna Kapoor PharmD [...] documented as of this encounter Care Teams Tool Grinder Set Up Operator Gear Relationship Specialty Start Date End Date Saundra Tee DO [address] [place] [address] PCP - General Family Medicine 03/15/15 Shanna Kapoor PharmD [address] [place] [address] Pharmacist Internal Medicine 01/04/23 04/09/25 documented as of this encounter
--- OUTSIDE RECORDS SUMMARY | 2025-04-16 16:05 | XMS_ITS | Clinical Summary ---
Author Organization [employer] Address [address] [place] [address] [address] [place] [address] Care Team Providers Care Geography Head Name Role Phone NaySaundra Primary Care Provider Allergies Active Allergy Reactions Criticality Noted Date Comments Celestino Inhibitors Cough 03/18/2012 Latex 04/08/2022 Losartan 07/03/2011 Other reaction(s): rash- severe Medications cholecalciferol (Vitamin D-3) 50 MCG (1999) capsule Take 1 capsule by mouth 1 (one) time each day. 04/01/20 21 Active aspirin 81 MG EC tablet Take 1 tablet by mouth 1 (one) time each day. 04/01/20 21 Active Lutein 40 MG capsule Take 1 tablet by mouth in the morning. Active Multiple Vitamin (multivitamin) tablet Take 1 tablet by mouth in the morning. Active glucose 4 g chewable tabletIndications :Type 2 diabetes mellitus without complication, with long-term current use of insulin (HCC) Chew 4 tablets (16 g) as needed for low blood sugar <70 mg/dL. Recheck blood sugar after 15 mins and repeat dose if still < 70 20 tablet 5 02/19/20 23 Active docusate sodium (Colace) 100 MG capsule TAKE 1 CAPSULE BY MOUTH EVERY DAY AT BEDTIME 01/24/20 24 Active albuterol (2.5 MG/3ML) 0.083% nebulizer solution INHALE 1 AMPULE USING A NEBULIZER EVERY 4 HOURS NEEDED FOR WHEEZING OR SHORTNESS OF BREATH 90 mL 1 08/16/19 25 Active albuterol 108 (90 Base) MCG/ACT inhaler INHALE 2 PUFFS BY MOUTH EVERY 6 HOURS NEEDED FOR WHEEZING 8.5 g 1 09/01/19 25 Active TRUEplus Lancets 33G miscIndications:T ype 2 diabetes mellitus without complication, with long-term current use of insulin ([facility]) Use to test blood sugar up to 3 times daily as directed 100 each 09/06/19 25 Active Continuous Glucose Brand Protection Manager (FreeStyle Rula 3 [place]) deviceIndications :Type 2 diabetes mellitus without complication, with long-term current use of insulin ([facility]) 1 each Once per day. Use as directed for CGM 1 each 01/10/20 25 Active montelukast (Singulair) 10 MG tabletIndications :Seasonal allergies Take 1 tablet (10 mg) by mouth at bedtime. 90 tablet 1 01/10/20 25 Active metoprolol succinate XL (Toprol-XL) 25 MG 24 hr tablet TAKE 1 TABLET BY MOUTH EVERY DAY 90 tablet 1 01/30/20 25 Active meloxicam (Mobic) 15 MG tablet TAKE 1 TABLET BY MOUTH EVERY MORNING 90 tablet 02/28/20 25 Active LORazepam (Ativan) 0.5 MG tabletIndications :Anxiety disorder, unspecified TAKE 1 TABLET BY MOUTH TWICE DAILY NEEDED FOR ANXIETY. DO NOT EXCEED 2 TO 3 TIMES PER WEEK 12 tablet 02/28/20 25 Active Continuous Glucose Sensor (FreeStyle Rula 3 Plus Sensor) miscIndications:T ype 2 diabetes mellitus without complication, with long-term current use of insulin ([facility]) Apply 1 every 15 days as directed for CGM 2 each 04/10/20 25 Active Tirzepatide (Mounjaro) 10 MG/0.5ML solution auto-injectorIndi cations:Type 2 diabetes mellitus without complication, with long-term current use of insulin ([facility]) Inject 10 mg under the skin 1 (one) time per week. 2 mL 04/10/20 25 Active insulin degludec (Tresiba FlexTouch) 200 UNIT/ML injectionIndicati ons:Type 2 diabetes mellitus without complication, with long-term current use of insulin ([facility]) Inject 24 Units under the skin at bedtime. 18 mL 04/10/20 25 Active insulin pen needle (UltiCare Short Pen Gilead) 31G X 8 mm miscIndications:T ype 2 diabetes mellitus without complication, with long-term current use of insulin ([facility]) Use 1 daily for insulin injections. 100 each 04/10/20 25 Active glucose blood (FreeStyle Precision Shaun Test) test stripIndications: Type 2 diabetes mellitus without complication, with long-term current use of insulin ([facility]) Use to test blood sugar up to 3 times daily, as directed 100 each 04/10/20 Active atorvastatin (Lipitor) 20 MG tabletIndications :Type 2 diabetes mellitus without complication, with long-term current use of insulin ([facility]),Other hyperlipidemia Take 1 tablet (20 mg) by mouth in the morning. 90 tablet 3 04/10/20 Active empagliflozin (Jardiance) 25 MGIndications:Typ e 2 diabetes mellitus without complication, with long-term current use of insulin ([facility]) Take 1 tablet (25 mg) by mouth Once per day. 90 tablet 3 04/10/20 25 2025 Active insulin pen needle (UltiCare Short Pen Gilead) 31G X 8 mm miscIndications:T ype 2 diabetes mellitus without complication, with long-term current use of insulin ([facility]) Use 1 daily for insulin injections. 100 each 11/01/19 25 2024 Discontinued(R eorder (will not trigger notification to Pharmacy)) Continuous Glucose Sensor (FreeStyle Rula 3 Plus Sensor) miscIndications:T ype 2 diabetes mellitus without complication, with long-term current use of insulin ([facility]) Apply 1 every 15 days as directed for CGM 2 each 01/10/20 25 2024 Discontinued(R eorder (will not trigger notification to Pharmacy)) glucose blood (FreeStyle Precision Shaun Test) test stripIndications: Type 2 diabetes mellitus without complication, with long-term current use of insulin ([facility]) Use to test blood sugar up to 3 times daily, as directed 100 each 01/10/20 25 2024 Discontinued(R eorder (will not trigger notification to Pharmacy)) Tirzepatide (Mounjaro) 10 MG/0.5ML solution auto-injectorIndi cations:Type 2 diabetes mellitus without complication, with long-term current use of insulin ([facility]) Inject 10 mg under the skin 1 (one) time per week. 2 mL 01/10/20 25 2024 Discontinued(R eorder (will not trigger notification to Pharmacy)) insulin degludec (Tresiba FlexTouch) 200 UNIT/ML injectionIndicati ons:Type 2 diabetes mellitus without complication, with long-term current use of insulin ([facility]) Inject 24 Units under the skin at bedtime. 18 mL 3 01/10/20 25 2024 Discontinued(R eorder (will not trigger notification to Pharmacy)) atorvastatin (Lipitor) 20 MG tabletIndications :Type 2 diabetes mellitus without complication, with long-term current use of insulin ([facility]),Other hyperlipidemia Take 1 tablet (20 mg) by mouth in the morning. 90 tablet 3 01/10/20 25 2024 Discontinued(R eorder (will not trigger notification to Pharmacy)) empagliflozin (Jardiance) 25 MGIndications:Typ e 2 diabetes mellitus without complication, with long-term current use of insulin ([facility]) Take 1 tablet (25 mg) by mouth Once per day. 90 tablet 3 01/10/202024 Discontinued(R eorder (will not trigger notification to Pharmacy)) Active Problems Problem Noted Date Diagnosed Date Healthcare maintenance 10/22/2023 Assessment & Plan (10/22/2023 1:52 PM EDT): -s/p flu vaccine MAR 2023 -she declines COVID vaccine -s/p RSV vaccine MAR 2023 -s/p Tdap December 2021 -s/p pneumovax MAY 2016 -s/p PCV20 NOVEMBER 2022 -s/p Shingrix JUN 2019 -Hep A immune -s/p Hep B vaccine -pap smear wnl/HPV NEG Apr 2018, she declines further pap screenings -mammo BIRADS 05 AUG 2023 -referred for DEXA -she refuses screening colonoscopy, iFOBT negative AUG 2021, check cologuard prior to next visit -STI/HIV screen negative SEP 2018 Paresthesia of both feet 10/22/2023 Assessment & Plan (10/22/2023 2:00 PM EDT): Probable diabetic neuropathy -she declines eval with EMG/NCS -she declines trial of gabapentin or lyrica -advised contact [facility] if sx change or worsen History of COVID-19 09/14/2022 Chronic left shoulder pain 06/17/2022 Assessment & Plan (10/22/2023 1:59 PM EDT): -shoulder XR with mild DDD and likely calcific tendontitis MAR 2021 -cont tylenol as needed -encouraged baclofen to help with mm spasm -cont lidocaine patches -advised contact HHC if sx worsen Essential hypertension 05/26/2022 Assessment & Plan (10/22/2023 1:54 PM EDT): BP controlled -cont toprol daily -cont home BP monitoring -Cr/GFR and urine microalbumin nml November 2022->repeat prior to next visit -there is screening EKG in chart -optho as above History of hepatitis C 05/26/2022 History of tobacco use 05/26/2022 Chronic low back pain 12/07/2017 Assessment & Plan (10/22/2023 1:59 PM EDT): with intermittent flaring -L-spine XR with DDD Mar 2018 -EMG/NCS with moderate peroneal neuropathy and mild suggestion of mild lumbar radiculopathy APR 2017, she refuses eval with MRI -cont tylenol prn -cont baclofen nightly -cont lidocaine patches -she declines PT -she declines referral to orthopedics -she declines f/u with pain mgmt -advised contact HHC if sx change or worsen Allergic rhinitis 04/26/2015 Anxiety 04/26/2015 Assessment & Plan (10/22/2023 1:56 PM EDT): With increased sx in setting of depression/weight gain -she denies any SI/HI -she has the number for crisis and contracts for safety -cont ativan prn -she declines additional med mgmt -she declines referral to therapist Chronic obstructive lung disease 04/26/2015 Assessment & Plan (10/22/2023 1:59 PM EDT): Controlled -PFTs with mod COPD Feb 2011 -cont albuterol as needed Female stress incontinence 04/26/2015 Hyperlipidemia 04/26/2015 Assessment & Plan (10/22/2023 1:55 PM EDT): Slight bump in LDL November 2022 -cont lipitor and aspirin daily -check lipids prior to next visit BMI 45.0-49.9, adult ([facility]) 04/26/2015 Type 2 diabetes mellitus 04/26/2015 Assessment & Plan (10/22/2023 1:54 PM EDT): A1c improved -cont lantus daily -cont victoza daily -cont glipizide BID with meals -encouraged dietary changes -f/u with [facility] pharmacist as scheduled -s/p optho eval 2022 for annual f/u, will get copy of most recent eval -s/p nml monofilament DEC 2021 Resolved Problems Problem Noted Date Diagnosed Date Resolved Date Impacted cerumen 05/26/2022 06/17/2022 Raised TSH level 09/02/2016 06/17/2022 Encounters Date Type Department Care Team Description 04/16/2025 1:40 PM EDT Office Visit [facility] [address] [place] [address] Dysuria (Primary Dx) 04/16/2025 Travel 04/10/2025 Travel 02/27/2025 Refill [facility] [address] [place] [address] Saundra Tee DO Anxiety disorder, unspecified 01/29/2025 Refill [facility] [address] [place] [address] Saundra Tee DO from Last 3 Months Immunizations Immunization Administration Dates Next Due Hep B, adult 01/23/2016, 6,09/19/2015,04/04,11/17/2013,06/12/2013 INFLUENZA VACCINE QUADRIVALE NT RECOMBINANT PRESERVATIVE FREE RIV4 03/06/2020 Influenza Quadrivalent Adjuvanted 03/18/2023 Influenza injectable quadriv alent IIV4 with preservative 03/22/2018,03/23/2017,03/25/2015 Influenza injectable quadriv alent preservative free 04/08/2022,03/19/2021,04/07/2016 Influenza, High Dose Seasona l, Preservative Free 04/10/2024,03/18/2019 Influenza, IIV3, injectable 04/04/2014, 1 Influenza, Split (incl. felecia fied surface antigen) 03/15/2013,03/18/2012 Moderna Covid-19 Vaccine 12+ 10/31/2021, 05/05/2021,10/26/2020,09/28 Pfizer Covid-19 Vaccine 12+ Bivalent 11/18/2022, 04/08/2022 Pneumococcal Conjugate PCV 20 11/18/2022 Pneumococcal Polysaccharide PPSV23 05/20/2016, RSV Adjuvant 03/18/2023 TD (adult), 2 Lf tetanus tox oid, preservative free, adsorbed 09/29/2006 Tdap 12/03/2021,09/03/2011 Zoster, Recombinant 06/08/2019,03/27/2019 Zoster, live 12/07/2017 Family History Medical History Relation Name Comments Cancer Father Diabetes Father Hypertension Father Diabetes Mother Heart disease Mother Stroke Mother Relation Name Status Comments Father Mother Social History Tobacco Use Types Packs/Day Years [...] Orientation Straight 05/04/2022 10 :18 AM EDT Last Filed Vital Signs Vital Sign Reading [...] Mass Index 42.1 04/16/2025 1:36 PM EDT Plan of Treatment Health Maintenance Due Date Last Done Comments CT Colonography 1955 Colonoscopy 1955 FIT 1955 Sigmoidoscopy 1955 Diabetes: Foot Exam 1967 Eye Exam 1967 Hepatitis A Vaccines (1 of 2 - Risk 2-dose series) 1976 Pap Smear 04/29/2023 04/29/2018 Dental Oral Exam 10/26/2024 04/26/2024, 07/2017, 09/03/2016, Additional history exists Dental Prophylaxis 10/26/2024 04/26/2024, 0 03/27/2019, 07/26/2018, Additional history exists FOBT 11/04/2024 11/05/2023 COVID-19 Vaccine ( season) 2025 03/17/2024, 11/18/2022, 04/08/2022, Additional history exists Influenza Vaccine (#1) 2025 , 03/18/2023, 04/08/2022, Additional history exists Depression Screening 03/07/2025 03/07/2024, 03/07/20 Dental X-Ray: Bitewings 04/27/2025 04/26/20 24, 11/02/2017, 12/10/2015 Mammogram 09/29/2025 09/29/2024, 08/06, 08/24/2022, Additional history exists Diabetes: Hemoglobin A1C 10/09/2025 025, 01/09/2025, 10/16/2024, Additional history exists Alcohol/Substance Use Screening 10/16/2025 10/16/2024 SDOH Screening 10/16/2025 10/16/2024 Diabetes: Urine Protein Screening 01/11/2026 01/11/2025, 11/04/2023, 11/18/2022, Additional history exists Lipid Panel 01/11/2026 01/11/2025, 0508/2023, 11/18/2022, Additional history exists Tobacco Screening 04/16/2026 04/16/2025 Colorectal Cancer Screening 11/04/2026 FIT DNA/Cologuard 11/04/2026 11/05/2023 Dental X-Ray: Full Mouth 04/27/2027 024, 12/10/2015, 03/13/2015 DTaP/Tdap/Td Vaccines (3 - Td or Tdap) 12/04/2031 12/03/2021, 09/03/2011, 09/29/2006 Hepatitis B Vaccines Completed 01/23/2016, 10/17/2015, 09/19/2015, Additional history exists HPV/Cotest Discontinued 04/29/2018 Zoster Vaccines Completed 06/08/2019, 03/06, 12/07/2017 Pneumococcal Vaccine: 50+ Years Completed 11/18/2022, 05/20/2016, 09/29/2006 RSV Patients and Patients Aged 60 years or older Completed 03/18/2023 HIB Vaccines Aged Out No longer eligi ble based on patient's age to complete this topic HPV Vaccines Aged Out No longer eligi ble based on patient's age to complete this topic IPV Vaccines Aged Out No longer eligi ble based on patient's age to complete this topic Meningococcal B Vaccine Aged Out No l onger eligible based on patient's age to complete this topic Meningococcal Vaccine Aged Out No henrry niya eligible based on patient's age to complete this topic RSV under 20 months Aged Out No longe r eligible based on patient's age to complete this topic Rotavirus Vaccines Aged Out No longer eligible based on patient's age to complete this topic Goals Goal Patient Goal Type Associated Problems Recent Progress Patient-Stated? Author Hemoglobin A1c < 7 Result Component 6.3( 9:24 AM EDT) No Shanna Kapoor, Patito Record your blood sugar as directed Result Component No Shanna Kapoor PharmD Note: Use CGM, ensuring sensor is scanned at least once every 8 hours to capture 24H data. Check BG manually, as directed. Procedures Procedure Name Priority Date/Time Associated Diagnosis Comments POCT URINALYSIS DIPSTICK Routine 04/16/2025 2:02 PM EDT Dysuria POCT GLYCATED HEMOGLOBIN, TOTAL Routine 04/10/2025 9:24 AM EDT Type 2 diabetes mellitus without complication, with long-term current use of insulin (HCC) ALBUMIN, RANDOM URINE W/CREATININE Routine 01/11/2025 10:49 AM EDT LIPID PANEL, STANDARD Routine 01/11/2025 10:49 AM EDT BI MAMMOGRAM SCREENING TOMOSYNTHESIS BILATERAL Routine 09/29/2024 9:15 AM EDT PROPHYLAXIS - ADULT Routine 04/26/2024 9 :00 AM EDT Dental plaque Dental calculus INTRAORAL - COMPLETE SERIES OF RADIOGRAPHIC IMAGES Routine 04/26/2024 9:00 AM EDT PERIODIC ORAL EVALUATION - ESTABLISHED PATIENT Routine 04/26/2024 9:00 AM EDT LAB COLOGUARD COLON CANCER SCREEN Routine 11/05/2023 6:15 AM EDT Colon cancer screening ZZZ HISTORICAL HPV E6/E7 RFLX MELYSSA 16 18/45 Routine 04/29/2018 11:17 AM EDT PAP SMEAR Routine 04/29/2018 12:00 AM EDT from Last 3 Months or Most Recently Relevant to Health Maintenance Results * POCT urinalysis dipstick manually resulted (CPT 63144) (04/16/2025 2:02 PM EDT) Color, UA Yellow Clarity, UA Clear Glucose, UA Trace Comment:500 mg/dl Bilirubin, UA Negative Ketones, UA Negative Spec Grav, UA 1.015 Blood, UA Negative Negative, None Detected pH, UA 5.5 Protein, UA Negative Urobilinogen, UA 0.2 Leukocytes, UA Negative Negative, Rare, Trace Nitrite, UA Negative Negative, None Detected Urine (Urine, Random) 04/16/2025 2:02 PM EDT Iveth Barbosa NP POINT OF CARE TEST ENTER/EDIT O RDERABLES Final Result * (ABNORMAL) POCT Hgb A1c (04/10/2025 9:24 AM EDT) Hemoglobin A1C 6.3(A) 4.0 - 5.7 % Blood 04/10/2025 9:24 AM EDT Saundra Tee DO POINT OF CARE TEST ENTER/MELVI T ORDERABLES Final Result * Albumin, Random Urine W/Creatinine (01/11/2025 10:49 AM EDT) Creatinine, Urine 138.81 mg/dL [facility] Microalbumin Urine 5.0 mg/L [facility] Microalbum Creatinine Ratio Ur 3.6 <30 ug/mg cr [facility] Comment:Albumin/Creatinine R atio Reference Ranges: Normal: < 30 ug/mg creatinine Microalbuminuria: 30 - 300 ug/mg creatinineClinical Albuminuria: > 300 ug/mg creatinine 01/11/2025 10:4 9 AM EDT 01/11/2025 11:31 AM EDT Saundra Tee DO LAB URINE ORDERABLES Final R esult Performing Organization Address [facility] Co de Phone Number [facility] [address] [place] [address] [phone] * (ABNORMAL) Lipid Panel, Standard (01/11/2025 10:49 AM EDT) Triglycerides 159(H) <150 mg/dL [facility] Comment:Desirable Triglyceri de: less than 150 mg/dLBorderline High Triglyceride 150-199 mg/dLHigh Triglyceride: 200-499 mg/dLVery High Triglyceride: greater than or equal to 5OO mg/dL Cholesterol 154 <200 mg/dL [facility] Comment:Desirable Cholestero l: less than 200 mg/dLBorderline High Cholesterol: 200-239 mg/dLHigh Cholesterol: greater than 239 mg/dL LDL Cholesterol Calculated 76 <100 mg/dL [facility] Comment:Desirable LDL: less than 100 mg/dLNear Optimal/Above Optimal LDL: 110- 129 mg/dLBorderline High LDL: 130-159 mg/dLHigh LDL: 160-189 mg/dLVery High LDL: greater than or equal to 190 mg/dL HDL Cholesterol 47 >40 mg/dL [facility] Comment:Desirable HDL: great er than 40 mg/dL Note: This HDL assay may give artificially low results in patients with liver disease. 01/11/2025 10:4 9 AM EDT 01/11/2025 12:07 PM EDT Saundra Tee DO LAB BLOOD ORDERABLES Final R esult Performing Organization Address City/[facility]/ZIP Co de Phone Number [facility] [address] [place] [address] [phone] * BI Mammogram Screening Tomosynthesis Bilateral (09/29/2024 9:15 AM EDT) Anatomical Region Laterality Modality Breast Bilateral Mammography 09/29/2024 9:15 AM EDT Narrative 10/07/2024 2:43 PM EDT [facility] [address] [place], [place] [address] Mammography Report Signed Patient: Ayala Anne MR#: [id number] 00 : 1955 Acct:[id number] Age/Sex: 69 / F ADM Date: 09/29/24 Loc: HO.MAMMO Attending Dr: Saundra Tee DO Ordering Physician: Saundra Tee DO Results: 1N egative Date of Service: 09/29/24 Follow Up: 1 Year From Orig ina Mammogram Procedure(s): MM tomosynthesis screening BI Accession Number(s): [id number] cc: Saundra Tee DO EXAMINATION: MM SCREENING DIGITAL BREAST TOMOSYNTHESIS, BILATERAL CLINICAL INFORMATION: Screening. Asymptomatic. COMPARISON: Mammography: Comparison is made with available priors TECHNIQUE: Digital breast mammography with tomosynthesis is performed in both the craniocaudal and mediolateral oblique views along with computer-aided detection (CAD). FINDINGS: There are scattered areas of fibroglandular density (ACR BI-RADS breast composition Category b). There are no significant masses, abnormal calcifications, or other abnormalities. MM/MM tomosynthesis screening BI IMPRESSION: No mammographic evidence of malignancy. ASSESSMENT: BI-RADS BI-RADS 1 - Negative RECOMMENDATION: Routine annual mammography screening. 1 year F/U This examination should not preclude the clinical evaluation of a suspicious palpable abnormality. This patient's information was entered into a reminder system with a target due date for their next mammogram. Electronically signed by: Maria Luz Connell DO 10/07/2024 02:40 PM EDT Dictated By: Maria Luz Connell DO Signed By: <Electronically signed by Maria Luz Connell DO in OV> 10/07/24 1440 DD/ 0915 TD/TT: 09/29/24 0933 Staff Genetic Counselor: Procedure Note Donotuseinterpreter, Image - 10/07/2024 [facility] [address] [place] [address] Mammography Report Signed Patient: Neema Anne#: [id number] 00 : 8Acct:[id number] Age/Sex: 69 / FADM Date: 09/29/24 Loc: HO.MAMMO Attending Dr: Saundra Tee DO Ordering Physician: Saundra Teeults: 1N egative Date of Service: 09/29/24Follow Up: 1 Year From Orig inal Mammogram Procedure(s): MM tomosynthesis screening BI Accession Number(s): [id number] cc: Saundra Tee DO EXAMINATION: MM SCREENING DIGITAL BREAST TOMOSYNTHESIS, BILATERAL CLINICAL INFORMATION: Screening. Asymptomatic. COMPARISON: Mammography: Comparison is made with available priors TECHNIQUE: Digital breast mammography with tomosynthesis is performed in both the craniocaudal and mediolateral oblique views along with computer-aided detection (CAD). FINDINGS: There are scattered areas of fibroglandular density (ACR BI-RADS breast composition Category b). There are no significant masses, abnormal calcifications, or other abnormalities. MM/MM tomosynthesis screening BI IMPRESSION: No mammographic evidence of malignancy. ASSESSMENT: BI-RADS BI-RADS 1 - Negative RECOMMENDATION: Routine annual mammography screening. 1 year F/U This examination should not preclude the clinical evaluation of a suspicious palpable abnormality. This patient's information was entered into a reminder system with a target due date for their next mammogram. Electronically signed by: Maria Luz Connell DO 10/07/2024 02:40 PM EDT Dictated By: Maria Luz Connell DO Signed By: <Electronically signed by Maria Luz Connell DO in OV> 10/07/24 1440 DD/ 0915 TD/TT: 09/29/24 0933 Staff Genetic Counselor: Saundra Tee DO IMG BI PROCEDURES Edited Res ult - Final * (ABNORMAL) Cologuard?? colon cancer screening (11/05/2023 6:15 AM EDT) Cologuard Result Positive( A) Negative 11/16/2023 10:41 AM EDT [employer] (CLIA #:[id number]) Comment: POSITIVE TEST RESULT. A positive Cologuard result should be followed with a colonoscopy or visual examination of the colon. The normal value (reference range) for this assay is negative. TEST DESCRIPTION: Composite algorithmic analysis of stool DNA-biomarkers with hemoglobin immunoassay. Quantitative values of individual biomarkers are not reportable and are not associated with individual biomarker result reference ranges. Cologuard is intended for colorectal cancer screening of adults of either sex, 45 years or older, who are at average-risk for colorectal cancer (CRC). Cologuard has been approved for use by the U.[place]. FDA. The performance of Cologuard was established in a cross sectional study of average-risk adults aged 50-84. Cologuard performance in patients ages 45 to 49 years was estimated by sub-group analysis of near-age groups. Colonoscopies performed for a positive result may find as the most clinically significant lesion: colorectal cancer [4.0%], advanced adenoma (including sessile serrated polyps greater than or equal to 1cm diameter) [20%] or non- advanced adenoma [31%]; or no colorectal neoplasia [45%]. These estimates are derived from a prospective cross-sectional screening study of 10,000 individuals at average risk for colorectal cancer who were screened with both Cologuard and colonoscopy. (Breanne Clay et al, N Engl J Med 2014;370(14):2640-1261.) Cologuard may produce a false negative or false positive result (no colorectal cancer or precancerous polyp present at colonoscopy follow up). A negative Cologuard test result does not guarantee the absence of CRC or advanced adenoma (pre-cancer). The current Cologuard screening interval is every 3 years. ([place] [employer] and [place]. Multi-Society Task Force). Cologuard performance data in a 10,000 patient pivotal study using colonoscopy as the reference method can be accessed at the following location: www.[employer]/results. Additional description of the Cologuard test process, warnings and precautions can be found at www.cologuard.com. Stool specimen (specimen) 11/05/2023 6:15 AM EDT 11/06/2023 7:54 AM EDT Saundra Tee DO LAB MOLECULAR DIAGNOSTICS OR DERABLES Final Result [employer] (CLIA #:[id number]) [address] [place] [address], * HPV E6/E7 RFLX MELYSSA 16 18/45 (04/29/2018 11:17 AM EDT) ADDITIONAL TESTING Not indicated () [facility] Comment: Test Performed by [facility], [facility] [place], [address] [place] [address] Theron Ham M.D., Ph.D., Director of Laboratories , CLIA [id number] HPV 16 RNA Test not performed [facility] HPV 18/45 RNA Test not performed [facility] HPV mRNA E6/E7 Not Detected NOT DETECTED [facility] Comment: This test was performed using the APTIMA(R) HPV Assay ([employer] This assay detects E6/E7 viral messenger RNA (mRNA) from 14 high-risk HPV types (16,18,31,33,35,39,45,51, 52,56,58,59,66,68). For additional information please refer to: http://education.[employer]/faq/QKP157e9 (This link is being provided for informational/ educational purposes only.) The analytical performance characteristics of this assay have been determined by [facility] [place]. The modifications have not been cleared or approved by the FDA. This assay has been validated pursuant to the CLIA regulations and is used for clinical purposes. Please note: Effective 03/16/2016, HPV testing will be performed using [employer]'s APTIMA test which targets mRNA. Detecting mRNA instead of DNA, as in older methods, offers significant improvements in specificity. 04/29/2018 11:1 7 AM EDT us Saundra Tee DO HISTORICAL/NON ORDERABLE LAB S Final Result [facility] [address] [place] [id number], * Pap Smear (04/29/2018 12:00 AM EDT) Swab us Saundra Tee DO LAB CYTOLOGY ORDERABLES Rem[facility]ios l Result [facility] [address] [place] [address] from Last 3 Months or Most Recently Relevant to Health Maintenance Insurance [facility] MEDICARE ADVANTAGE Care Teams Geography Head Relationship Specialty Start Date End Date Saundra Tee DO [address] [place] [id number] PCP - General Family Medicine 03/15/15
--- OUTSIDE RECORDS SUMMARY | 2025-04-16 16:05 | XMS_ITS | Encounter Summary ---
Author Organization [employer] Address [address] [facility] [address] [address] [place] [address] Care Team Providers Care Volleyball Player Name Role Phone Saundra Tee DO Primary Care Provider [phone] Shanna Kapoor PharmD Unavailable [phone] Reason for Visit * Reason Onset Date Comments r/s Derm NEW 08/30/2023 Encounter Details Date Type Department Care Team ([facility] st Contact Info) Description 08/30/2023 Telephone [facility] [address] [place] [address] Saundra Tee DO [address] [place] [address] r/s Derm NEW Social History Tobacco Use Types Packs/Day Years [...] encounter Miscellaneous Notes * Telephone Encounter - Ace Guerra - 08/30/2023 3:20 PM EST Tc from pt requesting to r/s appt for New Derm due to appt scheduled not working out. Please contact pt @ [phone] documented in this encounter Plan of Treatment Not on file documented as of this encounter Goals Goal Patient Goal Type Associated Problems Recent Progress Patient-Stated? Author Hemoglobin A1c < 7 Result Component 6.3( 5 9:24 AM EDT) No Puia, Shanna, PharmD [...] documented as of this encounter Care Teams Volleyball Player Relationship Specialty Start Date End Date Saundra Tee DO [address] [place] [address] PCP - General Family Medicine 03/15/15 Puia, Shanna, PharmD [address] [place] [address] Pharmacist Internal Medicine 01/04/23 04/09/25 documented as of this encounter
[2025-04-17 05:06] LABS: Bacterial Vaginosis PCR NEGATIVE (Negative); Candida Group PCR NOT DETECTED (Not Detect); Candida glab krusei PCR NOT DETECTED (Not Detect); Trichomonas vaginalis PCR NOT DETECTED (Not Detect)
== END 2025-04-16 16:03 | disposition home or self-care (01) ==
LOC: HO.HHCLNP 16:02
PROVIDERS: Visit Provider Nurse Practitioner
DX: R30.0 Dysuria (principal)
CPT/HCPCS: 81515; 87086